=== PATIENT | male | born 1990 | race American Indian/Alaskan Native ===

== ENCOUNTER 2020-11-27 17:29 | Emergency (ER) | payer SELFPAY | END 2020-11-27 17:34 | disposition left against medical advice (07) | LOC: ED 17:29 | DX: Z00.8 Encounter for other general examination (principal); Z53.21 Procedure and treatment not carried out due to patient leaving prior to being seen by health care provider ==

== ENCOUNTER 2020-11-29 16:44 | Emergency (ER) | payer SELFPAY ==
[2020-11-29 16:53] VITALS: BP 134/90
== END 2020-11-29 22:30 | disposition left against medical advice (07) ==
LOC: ED 16:44
DX: M79.18 Myalgia, other site (principal); L02.32 Furuncle of buttock; Z53.21 Procedure and treatment not carried out due to patient leaving prior to being seen by health care provider

== ENCOUNTER 2021-08-27 08:44 | Emergency (ER) | payer SELFPAY ==
[2021-08-27 08:58] VITALS: BP 150/132
--- NOTE | 2021-08-27 18:09 | Electrocardiograph Report ---
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
== END 2021-08-27 19:00 | disposition left against medical advice (07) ==
LOC: ED 08:44
DX: R05.9 Cough, unspecified (principal); R00.2 Palpitations; Z53.21 Procedure and treatment not carried out due to patient leaving prior to being seen by health care provider
CPT/HCPCS: 93005